=== PATIENT | female | born 1985 | race Two or more races ===

== ENCOUNTER → 2016-09-13 | Outpatient (CLI) | payer OTHER ==
--- NOTE | 2016-09-13 14:41 | MR ---
EXAMINATION TYPE: MR brain/cspine wo DATE OF EXAM: 09/13/2016 2:27 PM COMPARISON: NONE HISTORY: Headaches, Cervicalgia per order. Headaches with neck pain for 3 years per patient. TECHNIQUE: Multiplanar, multisequence imaging of the cervical spine, brain and brainstem are all perf ormed without IV contrast. FINDINGS: BRAIN: Diffusion weighted images demonstrate no evidence of a recent infarct or other diffusion abnormality. There is no worrisome extra-axial fluid collection. The ventricular system and cisternal spaces are normal in size and appearance. The brain volume is age appropriate. There are some scattered foci of T2 hyperintensity seen throughout the white matter bilaterally. I estimate approximately 10 scattere d lesions. Lesions are nonspecific in appearance and distribution. For reference 4 lesions are noted on axial image 20 with largest measuring almost 5 mm on long axis right posterior frontal white matte r and second 4 mm lesion noted left frontal white matter on axial image 17. Midline structures demonstrate normal morphology. The craniocervical junction appears within normal limits. Normal vascular flow voids are present. The visualized sinuses are clear and the globes are i ntact. IMPRESSION: Mild nonspecific white matter changes are present, given patient's history ischemic spain e related to product of migraine headaches needs to BE considered among the possible broad differenti al. C-SPINE: Exam is suboptimal as is degraded by patient motion FINDINGS: Sagittal images of the cervical spine show the craniocervical junction to appear within nor mal limits. The cervical and upper thoracic spinal cord is normal in course caliber and signal. Ther e is some reversal of normal cervical curvature.. The vertebral body intravertebral disk heights are normal. There is mild disc space narrowing C5-C6 level. Tiny posterior disc herniations are seen at C3-C4 through C5-C6 levels on sagittal images minimally effacing anterior thecal sac. No significant spurring is noted The bone marrow signal intensity is within normal limits. Hyperdense lesion right C2 level favors hemangioma on sagittal image 9. Axial images show the C2-C3 level to appear within normal limits. Axial images at C3-C4 level shows central disc protrusion mildly effacing anterior thecal sac on axia l image 35, bilateral neural foramina are patent. Axial images at C4-C5 level show small broad-based right paracentral disc protrusion mildly effacing anterior thecal sac on axial image 29, bilateral neural foramina are patent. Axial images at C5-C6 level show left paracentral/foraminal disc protrusion effacing anterolateral th ecal sac and causing mild left-sided neural foraminal narrowing on axial image 22, right-sided neural foramen is patent. Axial images at C6-C7 and C7-T1 levels are within normal limits. IMPRESSION: Loss of normal cervical curvature with mild multilevel degenerative changes in the upper to mid cervical spine seen as detailed above.
== END | disposition home or self-care (01) ==
LOC: RADMRIMAIN 12:57
PROVIDERS: ATTEND Psychiatry & Neurology Pain Medicine
DX: M47.812 Spondylosis without myelopathy or radiculopathy, cervical region (principal); M43.8X2 Other specified deforming dorsopathies, cervical region; R90.82 White matter disease, unspecified; R51 Headache
CPT/HCPCS: 70551; 72141

== ENCOUNTER → 2021-09-15 | Outpatient (CLI) | payer BC ==
--- NOTE | 2021-09-15 14:00 | XR ---
EXAMINATION TYPE: XR chest 2V DATE OF EXAM: 09/15/2021 COMPARISON: 07/03/2010 HISTORY: 36-year-old female R06.00, dyspnea TECHNIQUE: Frontal and lateral views FINDINGS: The cardiomediastinal silhouette, aorta, and pulmonary vasculature are within normal limits. Lungs an d pleural spaces are clear. Some type of external artifact projects at the medial right apex. IMPRESSION: No acute cardiopulmonary process.
--- NOTE | 2021-09-15 14:59 | CT ---
EXAMINATION TYPE: CT angio chest DATE OF EXAM: 09/15/2021 COMPARISON: CTA chest March 28, 2013. Chest x-ray earlier today HISTORY: elevated d-dimer post covid CT DLP: 353 mGycm. Automated Exposure Control for Dose Reduction was Utilized. CONTRAST: CTA scan of the thorax is performed with IV Contrast, patient injected with 75cc mL of Isovue 370, pu lmonary embolism protocol. MIP Images are created on CT scanner and reviewed. FINDINGS: LUNGS: The lungs remain grossly clear, there is no concerning parenchymal mass or nodule identified. No suspicious focal consolidation or groundglass opacity. There is no pleural effusion or pneumothor ax seen. The tracheobronchial tree is patent. MEDIASTINUM: There is satisfactory enhancement of the pulmonary artery and its branches, there is no CT evidence for pulmonary embolism. Satisfactory enhancement of the aorta without dissection. No gre ater than 3.5 cm ascending aortic aneurysm. Are no greater than 1 cm hilar or mediastinal lymph nodes . No cardiomegaly or pericardial effusion is seen. OTHER: Bilateral subpectoral breast implants are redemonstrated. IMPRESSION: No CT evidence for acute pulmonary embolism. No significant acute or chronic pulmonary pr ocess.
== END | disposition home or self-care (01) ==
LOC: RADCTMAIN 13:16
PROVIDERS: ATTEND Family Medicine
DX: U09.9 Post COVID-19 condition, unspecified (principal); R06.00 Dyspnea, unspecified; R79.89 Other specified abnormal findings of blood chemistry
CPT/HCPCS: 71046; 71275; Q9967

== ENCOUNTER → 2022-01-05 | Outpatient (CLI) | payer BC ==
--- NOTE | 2022-01-05 13:11 | CT ---
EXAMINATION TYPE: CT abdomen pelvis wo con DATE OF EXAM: 01/05/2022 COMPARISON: CT chest 09/15/2021 HISTORY: RLQ pain, pelvic pain CT DLP: 447 mGycm Automated exposure control for dose reduction was used. TECHNIQUE: Helical acquisition of images from the lung bases through the pelvis. FINDINGS: Lack of intravenous contrast could compromise sensitivity of the exam. Bilateral breast pro stheses are present. LUNG BASES: No significant abnormality is appreciated. AORTA: No significant abnormality is appreciated. LIVER/GB: No significant abnormality is appreciated. PANCREAS: No significant abnormality is seen. SPLEEN: No significant abnormality is seen. ADRENALS: No significant abnormality is seen. KIDNEYS: Densities along the papilla of the kidneys may be indicative of medullary nephrocalcinosis. Low dense focus present posterior lateral inferior pole the right kidney is indeterminate, measures 5 to 6 mm in size REPRODUCTIVE ORGANS: Punctate calcification thought present associated with the right ovary. There i s a lack of fat within the pelvis which limits differentiation of the structures.. URINARY BLADDER: No significant abnormality is seen. BOWEL: No significant abnormality is seen. No evident appendicitis. FREE AIR: No Free Air is visible. ASCITES: None visible. PELVIC ADENOPATHY: None visualized. RETROPERITONEAL ADENOPATHY: No Retroperitoneal Adenopathy visible. OSSEOUS STRUCTURES: No significant abnormality is seen. IMPRESSION: NONCONTRAST EXAM MAY LIMIT SENSITIVITY, ADDITIONAL FINDINGS ABOVE FOR FOLLOW-UP INDICATED.
== END | disposition home or self-care (01) ==
LOC: RADCTMAIN 12:28
PROVIDERS: ATTEND Family Medicine
DX: R10.31 Right lower quadrant pain (principal); R10.2 Pelvic and perineal pain
CPT/HCPCS: 74176

== ENCOUNTER 2022-09-16 17:02 | Emergency (ER) | payer BC ==
--- NOTE | 2022-09-16 18:44 | XR ---
EXAMINATION TYPE: XR chest 2V DATE OF EXAM: 09/16/2022 6:08 PM COMPARISON: Chest radiographs from 09/15/2021 TECHNIQUE: XR chest 2V Frontal and lateral views of the chest. CLINICAL INDICATION:Female, 37 years old with history of Chest Pain; FINDINGS: Lungs/Pleura: There is no evidence of pleural effusion, focal consolidation, or pneumothorax. Pulmonary vascularity: Unremarkable. Heart/mediastinum: Cardiomediastinal silhouette is unremarkable. Musculoskeletal: No acute osseous pathology. IMPRESSION: No acute cardiopulmonary disease/process.
[2022-09-16 19:02] LABS: Basophils # (A) 0.1 k/uL (0-0.2); Basophils % (A) 1 %; Eosinophils # (A) 0.1 k/uL (0-0.7); Eosinophils % (A) 1 %; HCT 39.6 % (34.0-46.0); HGB 13.6 gm/dL (11.4-16.0); Lymphocytes # (A) 2.2 k/uL (1.0-4.8); Lymphocytes % (A) 30 %; MCH 29.6 pg (25.0-35.0); MCHC 34.3 g/dL (31.0-37.0); MCV 86.2 fL (80.0-100.0); Mean Platelet Volume 7.6; Monocytes # (A) 0.3 k/uL (0-1.0); Monocytes % (A) 5 %; Neutrophils # (A) 4.6 k/uL (1.3-7.7); Neutrophils % (A) 62 %; Platelet Count 246 k/uL (150-450); RDW 12.6 % (11.5-15.5); WBC 7.5 k/uL (3.8-10.6)
[2022-09-16 19:04] LABS: ALT 36 U/L (4-34); AST 30 U/L (14-36); African American GFR (CKD) >90 (>60 ml/min/1.73 sqM); Alkaline Phosphatase 60 U/L (38-126); Anion Gap 7 mmol/L; Blood Urea Nitrogen 12 mg/dL (7-17); Calcium 9.8 mg/dL (8.4-10.2); Carbon Dioxide 27 mmol/L (22-30); Chloride 107 mmol/L (98-107); Glucose 95 mg/dL (74-99); Magnesium 2.1 mg/dL (1.6-2.3); Non-African American GFR(CKD) >90 (>60 ml/min/1.73 sqM); Potassium 4.4 mmol/L (3.5-5.1); Sodium 141 mmol/L (137-145); Total Bilirubin 1.3 mg/dL (0.2-1.3)
[2022-09-16 19:05] LABS: INR 0.9 (<1.2); Partial Thromboplastin Time 24.7 sec (22.0-30.0); Prothrombin Time 10.1 sec (9.0-12.0)
--- NOTE | 2022-09-16 20:04 | ED ---
Chest Pain HPI - General Chief Complaint: Chest Pain Stated Complaint: Chest Pain,SOB Time Seen by Provider: 09/16/22 18:07 Source: patient Mode of arrival: ambulatory Limitations: no limitations - History of Present Illness Initial Comments: This patient is a 37-year-old woman who presents to have evaluation of chest pain that had started around 10 AM around the time she was having breakfast. Patient was also concerned because last night around 6 PM she noticed that she was having some left arm pressure. This had also developed at rest. The anette ent states that the symptoms do not have any exertional component. She has not noted worsening or relieving factors. There were no associated anginal symptoms. MD Complaint: chest pain -: hour(s) Onset: during rest Pain Location: substernal Pain Radiation: none Severity: moderate Quality: heaviness Consistency: constant Improves With: nothing Worsens With: nothing Treatments Prior to Arrival: none - Related Data Home Medications Medication Instructions Recorded Confirmed Albuterol Sulfate [Albuterol 2 puff INHALATION RT-QID PRN 09/16/22 09/16/22 Sulfate Hfa] Allergies Allergy/AdvReac Type Severity Reaction Status Date / Time No Known Allergies Allergy Verified 09/16/22 19:21 Review of Systems ROS Statement: Those systems with pertinent positive or pertinent negative responses have been documented in the HPI. ROS Other: All systems not noted in ROS Statement are negative. Constitutional: Denies: fever, chills, weakness Respiratory: Denies: cough, dyspnea Cardiovascular: Reports: as per HPI, chest pain. Denies: palpitations, orthopnea, edema, syncope Gastrointestinal: Denies: abdominal pain, nausea, vomiting Genitourinary: Denies: dysuria, hematuria Musculoskeletal: Denies: back pain Skin: Denies: rash Neurological: Denies: headache, weakness EKG Findings - EKG Results: EKG: interpreted by ERMD, sinus rhythm (Rate 85 bpm), normal axis, normal QRS, normal ST/T Past Medical History Past Medical History: No Reported History History of Any Multi-Drug Resistant Organisms: None Reported Additional Past Surgical History / Comment(s): breast implants,. tumor removed left breast. Past Psychological History: No Psychological Hx Reported Smoking Status: Never smoker Past Alcohol Use History: None Reported Past Drug Use History: None Reported General Exam Limitations: no limitations General appearance: alert, in no apparent distress Head exam: Present: atraumatic, normocephalic Eye exam: Present: normal appearance. Absent: scleral icterus, conjunctival injection Neck exam: Present: normal inspection Respiratory exam: Present: normal lung sounds bilaterally. Absent: respiratory distress, wheezes, rales, rhonchi, stridor, chest wall tenderness, accessory muscle use Cardiovascular Exam: Present: regular rate, normal rhythm, normal heart sounds. Absent: systolic murmur, diastolic murmur, rubs, gallop GI/Abdominal exam: Present: soft. Absent: distended, tenderness, guarding, rebound, rigid, mass Extremities exam: Present: normal inspection, normal capillary refill. Absent: pedal edema, calf tenderness Back exam: Present: normal inspection. Absent: CVA tenderness (R), CVA tenderness (L) Neurological exam: Present: alert Skin exam: Present: warm, dry, intact, normal color. Absent: rash Course Vital Signs 09/16/22 09/16/22 09/16/22 17:15 18:30 18:32 Temperature 97.8 F Pulse Rate 85 80 Pulse Rate [ 82 [employer] ] Respiratory 20 18 Rate Blood Pressure 128/86 121/74 O2 Sat by Pulse 96 97 Oximetry 09/16/22 09/16/22 20:00 20:21 Temperature 98.3 F Pulse Rate 83 72 Pulse Rate [ [employer] ] Respiratory 18 18 Rate Blood Pressure 120/72 O2 Sat by Pulse 99 99 Oximetry Chest Pain MDM - MDM I interpreted the chest x-ray as being negative for infiltrate, cardiomegaly, mediastinal enlargement Patient's 37-year-old woman presenting to have evaluation for chest pain. The chest pain is atypical in nature. She does not have any risk factors for cardiac disease. The workup here is negative. Discussed appropriate further care and follow-up as well as return parameters. Was pt. sent in by a medical professional or institution? @ -No Did you speak to anyone other than the patient for history? @ -[No Did you review nursing and triage notes? @ -[agree Were old charts reviewed? @ -No Differential Diagnosis? @ -[Differential Chest Pain: Stable Angina, Unstable Angina, STEMI, NSTEMI Aortic Dissection, Pneumothorax, Musculoskeletal, Esophageal Spasm GERD, Cholecystitis, Pancreatitis, , this is not meant to be an all-inclusive list. EKG interpreted by me (3pts min.)? @ -[See chart X-rays interpreted by me (1pt min.)? @ -[See chart CT interpreted by me (1pt min.)? @ -[none] U/S interpreted by me (1pt. min.)? @ -[none] What testing was considered but not performed? (CT, X-rays, U/S, labs)? Why? @ [None What meds were considered but not given? Why? @ -[none] Did you discuss the management of the patient with other professionals? @ -[No Did you reconcile home meds? @ -[none] Was smoking cessation discussed for >3mins.? @ -[none] Was critical care preformed (if so, how long)? @ -[none] Were there social determinants of health that impacted care today? How? (Homelessness, low income, unemployed, alcoholism, drug addiction, transportation, low edu. Level, literacy, decrease access to med. care, [facility], rehab)? @ -[None Was there de-escalation of care discussed even if they declined? (Discuss DNR or withdrawal of care, Hospice)? @ -[No What co-morbidities impacted this encounter? (DM, HTN, Smoking, COPD, CAD, Cancer, CVA, Hep., AIDS, mental health diagnosis, sleep apnea, morbid obesity)? @ -[No Was patient admitted / discharged? @ -[Discharge Undiagnosed new problem with uncertain prognosis? @ -[none] Drug Therapy requiring intensive monitoring for toxicity (Heparin, Nitro, Insulin, Cardizem)? @ -[none] Were any procedures done? @ -[none] Diagnosis/symptom? @ -Chest pain Acute, or Chronic, or Acute on Chronic? @ -[Acute Uncomplicated (without systemic symptoms) or Complicated (systemic symptoms)? @ -[Uncomplicated Side effects of treatment? @ -[none] Exacerbation, Progression, or Severe Exacerbation] @ -[no] Poses a threat to life or bodily function? @ -[no] Disposition Clinical Impression: Chest pain Disposition: HOME SELF-CARE Condition: Good Instructions (If sedation given, give patient instructions): Chest Pain (ED) Is patient prescribed a controlled substance at d/c from ED?: No Referrals: Oneil Lee MD [Primary Care Provider] - 1-2 days
[2022-09-16 20:20] VITALS: RESP 18
[2022-09-16 20:23] VITALS: BP 120/72; PULSE 72; TEMP 98.3
== END 2022-09-16 20:23 | disposition home or self-care (01) ==
LOC: EC 17:02
DX: R07.89 Other chest pain (principal)
CPT/HCPCS: 36415; 71046; 80053; 83735; 84484; 85025; 85610; 85730; 93005; 99285

== ENCOUNTER 2023-01-12 17:20 | Emergency (ER) | payer BC ==
[2023-01-12 17:31] VITALS: PULSE 90; RESP 16; TEMP 97.5
--- NOTE | 2023-01-12 17:42 | ED ---
Abdominal Pain HPI - General Chief Complaint: Abdominal Pain Stated Complaint: Abd Pain Time Seen by Provider: 01/12/23 17:38 Source: patient, RN notes reviewed, old records reviewed Mode of arrival: ambulatory Limitations: no limitations - History of Present Illness Initial Comments: This is a 29-year-old female DF for evaluation presents today for evaluation of abdominal pain. Patient comes over to the emergency department from computed tomography scan to rule out ovarian torsion. MD Complaint: abdominal pain -: hour(s) Location: diffuse, epigastric, suprapubic Radiation: epigastric, suprapubic Migration to: no migration Severity: moderate Severity scale (1-10): 4 Consistency: intermittent Improves With: nothing Worsens With: nothing Context: other (No prior history of abdominal surgery) Treatments Prior to Arrival: other (0) - Related Data Home Medications Medication Instructions Recorded Confirmed Albuterol Sulfate [Albuterol 2 puff INHALATION RT-QID PRN 09/16/22 01/12/23 Sulfate Hfa] Allergies Allergy/AdvReac Type Severity Reaction Status Date / Time No Known Allergies Allergy Verified 01/12/23 18:41 Review of Systems ROS Statement: Those systems with pertinent positive or pertinent negative responses have been documented in the HPI. ROS Other: All systems not noted in ROS Statement are negative. Past Medical History Past Medical History: Asthma History of Any Multi-Drug Resistant Organisms: None Reported Additional Past Surgical History / Comment(s): breast implants,. tumor removed left breast. Past Psychological History: No Psychological Hx Reported Smoking Status: Never smoker Past Alcohol Use History: None Reported Past Drug Use History: None Reported General Exam Limitations: no limitations General appearance: alert, in no apparent distress Head exam: Present: atraumatic, normocephalic, normal inspection Eye exam: Present: normal appearance, PERRL, EOMI. Absent: scleral icterus, conjunctival injection, periorbital swelling ENT exam: Present: normal exam, mucous membranes moist Neck exam: Present: normal inspection. Absent: tenderness, meningismus, lymphadenopathy Respiratory exam: Present: normal lung sounds bilaterally. Absent: respiratory distress, wheezes, rales, rhonchi, stridor Cardiovascular Exam: Present: regular rate, normal rhythm, normal heart sounds. Absent: systolic murmur, diastolic murmur, rubs, gallop, clicks GI/Abdominal exam: Present: soft, normal bowel sounds. Absent: distended, tenderness, guarding, rebound, rigid Extremities exam: Present: normal inspection, full ROM, normal capillary refill. Absent: tenderness, pedal edema, joint swelling, calf tenderness Back exam: Present: normal inspection Neurological exam: Present: alert, oriented X3, CN II-XII intact Psychiatric exam: Present: normal affect, normal mood Skin exam: Present: warm, dry, intact, normal color. Absent: rash Course Vital Signs 01/12/23 01/12/23 17:29 20:30 Temperature 97.5 F L Pulse Rate 90 90 Respiratory 16 16 Rate Blood Pressure 137/83 134/60 O2 Sat by Pulse 100 100 Oximetry - Reevaluation(s) Reevaluation #1: 01/12/23 18:21 Medical record is reviewed Reevaluation #2: Patient symptoms improved here in the ER Reevaluation #3: Patient informed results questions answered Reevaluation #4: 01/12/23 18:21 Was pt. sent in by a medical professional or institution? @ -no Did you speak to anyone other than the patient for history? @ -no Did you review nursing and triage notes? @ -agree Were old charts reviewed? @ -Outpatient lab values and computed tomography scan from earlier in the day are reviewed and interpreted Differential Diagnosis? @ -prior EKG interpreted by me (3pts min.)? @ -yes X-rays interpreted by me (1pt min.)? @ -yes CT interpreted by me (1pt min.)? @ -no U/S interpreted by me (1pt. min.)? @ -no What testing was considered but not performed? (CT, X-rays, U/S, labs)? Why? @ -no What meds were considered but not given? Why? @ -no Did you discuss the management of the patient with other professionals? @ -no Did you reconcile home meds? @ -no Was smoking cessation discussed for >3mins.? @ -no Was critical care preformed (if so, how long)? @ -no Were there social determinants of health that impacted care today? How? (Homelessness, low income, unemployed, alcoholism, drug addiction, transportation, low edu. Level, literacy, decrease access to med. care, [facility], rehab)? @ -no Was there de-escalation of care discussed even if they declined? (Discuss DNR or withdrawal of care, Hospice)? @ -no What co-morbidities impacted this encounter? (DM, HTN, Smoking, COPD, CAD, Cancer, CVA, Hep., AIDS, mental health diagnosis, sleep apnea, morbid obesity)? @ -no Was patient admitted / discharged? @ -dc Undiagnosed new problem with uncertain prognosis? @ -no Drug Therapy requiring intensive monitoring for toxicity (Heparin, Nitro, Insulin, Cardizem)? @ -no Were any procedures done? @ -no Diagnosis/symptom? @ -hemorrhagic cyst Acute, or Chronic, or Acute on Chronic? @ -acute Uncomplicated (without systemic symptoms) or Complicated (systemic symptoms)? @ -no Side effects of treatment? @ -no Exacerbation, Progression, or Severe Exacerbation] @ -no Poses a threat to life or bodily function? @ -no Reevaluation #5: 01/12/23 18:21 Differential Abdominal Pain Women: Appendicitis, Cholecystitis, diverticulosis, ischemic bowel, pancreatitis, hepatitis, UTI, gastroenteritis, AAA, incarcerated hernia, bowel obstruction, constipation, inflammatory bowel, hepatitis, peptic ulcer disease, splenic infarction, perforated viscus, vulvitis, ovarian torsion, PID, kidney stone, placenta abruption, this is not meant to be an all-inclusive list Medical Decision Making - Medical Decision Making 29 female Amanda with significant and severe abdominal pain persistent for a week hemorrhagic cyst, outpatient evaluation including computed tomography scan labwork is interpreted ultrasound does show hemorrhagic cyst patient symptoms are improved patient can be discharged home - Lab Data Lab Results 01/12/23 01/12/23 Range/Units 17:45 17:45 Urine Color Light Yellow Urine Appearance Clear (Clear) Urine pH 6.0 (5.0-8.0) Ur Specific [place] 1.010 (1.001-1.035) Urine Protein Negative (Negative) Urine Glucose (UA) Negative (Negative) Urine Ketones Trace H (Negative) Urine Blood Negative (Negative) Urine Nitrite Negative (Negative) Urine Bilirubin Negative (Negative) Urine Urobilinogen <2.0 (<2.0) mg/dL Ur Leukocyte Esterase Negative (Negative) Urine HCG, Qual Not Detected (Not Detectd) - Radiology Data Radiology results: report reviewed (Ultrasound pelvis positive for hemorrhagic cyst), image reviewed Disposition Clinical Impression: Hemorrhagic cyst of ovary, Abdominal pain Disposition: HOME SELF-CARE Condition: Good Instructions (If sedation given, give patient instructions): Ovarian Cyst (ED), Ruptured Ovarian Cyst (ED) Is patient prescribed a controlled substance at d/c from ED?: No Referrals: Bryanna Reddy MD [Family Provider] - 1-2 days Time of Disposition: 20:05
[2023-01-12 18:11] LABS: Appearance,Urine Clear (Clear); Bilirubin,Urine Negative (Negative); Blood,Urine Negative (Negative); Color,Urine Light Yellow; Glucose,Urine (UA) Negative (Negative); Ketones,Urine Trace (Negative); Leukocyte Esterase,Urine Negative (Negative); Nitrite,Urine Negative (Negative); Protein,Urine Negative (Negative); Urobilinogen,Urine <2.0 mg/dL (<2.0)
--- NOTE | 2023-01-12 19:09 | US ---
EXAMINATION TYPE: US pelvis complete transvag DATE OF EXAM: 01/12/2023 COMPARISON: CT: Today CLINICAL INDICATION: Female, 37 years old with history of torsion; Abnormal CT TECHNIQUE: Transvaginal (TV). Transabdominal sonographic images of the pelvis were acquired. Trans vaginal sonographic images were medically necessary to better assess the following anatomy: Ovaries Date of LMP: Pt states around 2 1/2 weeks ago EXAM MEASUREMENTS: Uterus: 9.6 x 5.2 x 4.1 cm Endometrial Stripe: 1.5 cm Right Ovary: 2.2 x 1.9 x 1.4 cm Left Ovary: 3.4 x 3.1 x 2.7 cm 1. Uterus: Anteverted wnl 2. Endometrium: Possibly thickened? Heterogeneous appearance 3. Right Ovary: wnl, appropriate arterial and spectral venous waveforms. 4. Left Ovary: Complex appearing. There appears to be a "ring of fire" sign around a complex structu re. Measuring 1.7 x 1.4 cm low internal echoes. Appropriate arterial and spectral venous waveforms. Spectral, color and waveform doppler imaging shows good arterial and venous flow within the ovaries ; there is no evidence for ovarian torsion. 5. Bilateral Adnexa: Fluid seen in the right adnexa 6. Posterior cul-de-sac: fluid seen IMPRESSION: 1. Suspected left ovarian hemorrhagic follicle measuring up to 1.7 x 1.4 cm. Follow-up ultrasound in 8-12 weeks recommended to ensure resolution. 2. Appropriate arterial and venous waveforms to the left ovary. 3. Endometrium appears within normal limits for thickness. There is some heterogeneity to the endome trium which could relate to menstruation changes.
[2023-01-12] MEDS ORDERED: traMADol 50 MG STARTER PACK 3 TAB BTL PO STA (20:02)
[2023-01-12] MEDS ORDERED: ONDANSETRON 4 MG ODT STARTER PACK 2 TAB BTL PO STA (20:02)
[2023-01-12] MEDS ORDERED: traMADol 50 MG TAB PO STA (20:02)
[2023-01-12 20:32] VITALS: BP 134/60
== END 2023-01-12 20:31 | disposition home or self-care (01) ==
LOC: EC 17:20
DX: N83.202 Unspecified ovarian cyst, left side (principal); J45.909 Unspecified asthma, uncomplicated; Z79.899 Other long term (current) drug therapy
CPT/HCPCS: 81003; 81025; 93975; 76856; 76830; 99284; S0119

== ENCOUNTER → 2023-01-12 | Outpatient (CLI) | payer BC ==
--- NOTE | 2023-01-12 17:04 | CT ---
EXAMINATION TYPE: CT abdomen pelvis wo con CT DLP: 471 mGycm, Automated exposure control for dose reduction was used. DATE OF EXAM: 01/12/2023 4:48 PM COMPARISON: CT abdomen pelvis most recent from 01/05/2022. CLINICAL INDICATION:Female, 37 years old with history of R10.30 LOWER ABDOMINAL PAIN, UNSPECIFIED; LO W BACK AND BELLY PAINS THAT SHOOT DOWN THE LEGS. ORDER STATES ATTN TO [facility]. TECHNIQUE: Axial CT of the abdomen and pelvis. Sagittal and coronal reformats were created on a [employer] workstation. Contrast used: None Oral contrast used: without Oral Contrast FINDINGS: LOWER CHEST: Unremarkable ABDOMEN LIVER: Unremarkable GALLBLADDER AND BILE DUCTS: Unremarkable. PANCREAS: Unremarkable. SPLEEN: Unremarkable. ADRENAL GLANDS: Unremarkable. KIDNEYS AND URETERS: No evidence of hydronephrosis or renal calculus. The ureters are unremarkable. PELVIS BLADDER: Unremarkable REPRODUCTIVE: There is asymmetric increased blood ovary. Left ovary measures 3.9 x 2.0 x 3.2. Right o vary measures 2.1 x 2.4 x 1.5 cm ABDOMEN & PELVIS STOMACH AND BOWEL: No evidence of bowel obstruction. PERITONEUM/RETROPERITONEUM: Trace fluid is seen within the pelvis, no evidence of pneumoperitoneum. VASCULATURE: No evidence of aortic aneurysm. MUSCULOSKELETAL: No acute osseous abnormalities, mild scoliosis changes of the spine. Visualized neur al foramen and spinal canal appear patent given CT technique. LYMPH NODES: No gross evidence for lymphadenopathy. SOFT TISSUE/ABDOMINAL WALL: Unremarkable IMPRESSION: 1. No evidence of acute fracture. The spinal canal and neural foramen appear patent. Consider furthe r evaluation with MRI. 2. Asymmetrically increased left ovary size, further evaluation with pelvic ultrasound with Doppler imaging may be of benefit. Findings could represent underlying follicular changes and/or edema in the appropriate clinical setting of ovarian torsion.
[2023-01-12 21:18] LABS: C Reactive Protein <0.30 mg/dL (0.00-0.80)
[2023-01-12 21:19] LABS: ALT 34 U/L (8-44); AST 23 U/L (13-35); African American GFR (CKD) 128.7 (60.0-200.0); Albumin 5.1 g/dL (3.8-4.9); Alkaline Phosphatase 53 U/L (41-126); BUN/Creat Ratio 25.07 Ratio (12.00-20.00); Calcium 10.1 mg/dL (8.7-10.3); Carbon Dioxide 23.2 mmol/L (20.0-27.5); Chloride 106 mmol/L (96-109); Globulin 2.7 g/dL (1.6-3.3); Glucose 83 mg/dL (70-110); Non-African American GFR(CKD) 111.1 (60.0-200.0); Potassium 4.3 mmol/L (3.5-5.5); Sodium 142 mmol/L (135-145); Total Protein 7.8 g/dL (6.2-8.2)
[2023-01-12 21:39] LABS: Basophils # (A) 0.05 X 10*3/uL (0.00-0.10); Basophils % (A) 0.6 %; Eosinophils # (A) 0.16 X 10*3/uL (0.04-0.35); HCT 40.5 % (37.2-46.3); HGB 13.1 g/dL (12.0-15.0); Immature Grans, Automated 0.3 %; Lymphocytes # (A) 2.56 X 10*3/uL (0.90-5.00); Lymphocytes % (A) 32.2 %; MCH 28.3 pg (27.0-32.0); MCHC 32.3 g/dL (32.0-37.0); MCV 87.5 fL (80.0-97.0); Mean Platelet Volume 10.9 fL (9.5-12.2); Monocytes # (A) 0.62 X 10*3/uL (0.20-1.00); Monocytes % (A) 7.8 %; NRBC Per 100 WBC 0 /100 WBCS (0.0-0.0); Neutrophils # (A) 4.55 X 10*3/uL (1.80-7.70); Neutrophils % (A) 57.1 %; Platelet Count 264 X 10*3/uL (140-440); RBC 4.63 X 10*6/uL (4.10-5.20); RDW 12.6 % (11.5-14.5); WBC 7.96 X 10*3/uL (4.50-10.00)
== END | disposition home or self-care (01) ==
LOC: LABWHC1 15:20
PROVIDERS: ATTEND Family Medicine
DX: R10.30 Lower abdominal pain, unspecified (principal)
CPT/HCPCS: 36415; 74176; 80053; 85025; 86140

== ENCOUNTER → 2023-04-14 | Outpatient (CLI) | payer BC ==
[2023-04-14 16:58] LABS: Basophils # (A) 0.04 X 10*3/uL (0.00-0.10); Basophils % (A) 0.9 %; Eosinophils % (A) 4.6 %; HCT 38.7 % (37.2-46.3); HGB 12.2 d/dL (12.0-15.0); Lymphocytes # (A) 1.68 X 10*3/uL (0.90-5.00); Lymphocytes % (A) 38.5 %; MCH 28.2 pg (27.0-32.0); MCHC 31.5 d/dL (32.0-37.0); MCV 89.6 FL (80.0-97.0); Monocytes # (A) 0.36 X 10*3/uL (0.20-1.00); Monocytes % (A) 8.3 %; NRBC Per 100 WBC 0 X 10*3/uL (0.00-0.01); Neutrophils # (A) 2.07 X 10*3/uL (1.80-7.70); Neutrophils % (A) 47.5 %; Platelet Count 221 X 10*3/uL (140-440); RBC 4.32 X 10*6/uL (4.10-5.20); RDW 12.6 % (11.5-14.5); WBC 4.36 X 10*3/uL (4.50-10.00)
== END | disposition home or self-care (01) ==
LOC: LABPAT 09:45
PROVIDERS: ATTEND Obstetrics & Gynecology Obstetrics
DX: Z01.812 Encounter for preprocedural laboratory examination (principal); N84.0 Polyp of corpus uteri; N92.0 Excessive and frequent menstruation with regular cycle
CPT/HCPCS: 85025

== ENCOUNTER 2023-04-22 10:31 | Day surgery (SDC) | payer BC ==
[2023-04-14 12:26] VITALS: BMI 20.5
[~2023-04-22 10:31] MED LIST: DEXAMETHASONE SOD PHOSPHATE 4 MG/ML 1 ML VIAL IV ONE; HYDROmorphone 0.5 MG/0.5 ML SYRINGE IVP PRN; LACTATED RINGERS 1,000 ML IV SCH; LIDOCAINE 1% (10MG/ML) FOR IV START INTRADERMA PRN; ONDANSETRON 4 MG/2 ML VIAL IVP ONE; Pre Op ABX Message 1 EACH MISC MISCELLANE ONE; SCOPOLAMINE 1 MG/72 HR PATCH TRANSDERM ONE; droPERidol 5 MG/2 ML VIAL IVP ONE
[2023-04-22 10:52] VITALS: RESP 16
[2023-04-22] MEDS ORDERED: LIDOCAINE 2% INJ 20 MG/ML (2 ML VIAL) ONE (11:42)
[2023-04-22] MEDS ORDERED: MIDAZOLAM 2 MG/2 ML VIAL ONE (11:42)
[2023-04-22] MEDS ORDERED: KETOROLAC 15 MG/ML 1 ML VIAL ONE (11:42)
[2023-04-22] MEDS ORDERED: fentaNYL (PF) 50 MCG/ML 2 ML AMP ONE (11:42)
[2023-04-22] MEDS ORDERED: PROPOFOL 10 MG/ML 20 ML VIAL IV ONE (11:42)
[2023-04-22] MEDS ORDERED: SILVER NITRATE APPLICATOR 1 EACH STICK..EA. TOPICAL ONE (12:07)
[2023-04-22] MEDS ORDERED: LACTATED RINGERS 1,000 ML IV ONE (12:07)
--- NOTE | 2023-04-22 12:22 | P.OP ---
Date of Procedure: 04/22/23 Preoperative Diagnosis: Endometrial polyp, heavy menstrual bleeding Postoperative Diagnosis: Same Procedure(s) Performed: Hysteroscopy, dilation and curettage Anesthesia: MAC Surgeon: Alejandra Dawn Estimated Blood Loss (ml): 3 IV fluids (ml): 700 Urine output (ml): 100 Pathology: other (Endometrial curettings, polyp) Condition: stable Disposition: PACU Indications for Procedure: Heavy menstrual bleeding with ultrasound confirmation of endometrial polyp Operative Findings: Proliferative endometrium with benign appearing endometrial polyp Description of Procedure: Patient was taken back to the operating suite where general anesthesia was obtained without difficulty by the anesthesia department. She was prepped and draped in normal sterile fashion in the dorsal lithotomy position. A [place] catheter was used to drain the bladder clear yellow urine. The weighted speculum was placed the posterior vaginal vault intralipids the cervix was visualized and grasped with a single-tooth tenaculum. Endocervical canal sincerely dilated. Hysteroscope was placed through the cervix and toward the usual cavity. An intact cavity was appreciated with a large endometrial polyp. Pictures were taken and the hysteroscope was removed. A sharp curettage was performed and endometrial polyp was removed without difficulty. The curette was continued until gritty texture was noted in all 4 quadrants of the endometrial cavity. The specimens and sent to pathology for analysis. The single-tooth tenaculum was taken off the anterior lip of the cervix. A slight amount of ble eding was noted therefore silver nitrate was used to obtain hemostasis. All instrument removed from the patient's vaginal vault. All counts were correct 2. Patient tolerated procedure well and was taken the recovery room awake in stable condition.
[2023-04-22 12:23] VITALS: TEMP 98
[2023-04-22 13:47] VITALS: BP 115/74; PULSE 60
== END 2023-04-22 13:44 | disposition home or self-care (01) ==
LOC: OR 10:31
PROVIDERS: ATTEND Obstetrics & Gynecology Obstetrics
DX: N85.8 Other specified noninflammatory disorders of uterus (principal); J45.909 Unspecified asthma, uncomplicated; Z79.51 Long term (current) use of inhaled steroids
CPT/HCPCS: 58558; 81025; 88305; J2250; J1100; J2405; J3010; J1885; J2704; J2001

== ENCOUNTER → 2024-10-09 | Outpatient (CLI) | payer BC ==
--- NOTE | 2024-10-09 10:43 | MM ---
Reason for Exam: Screening (asymptomatic). Baseline mammogram. Patient History: Menarche at age 10. First Full-Term at age 20. Patient has history of breast feeding. 01/17/2015, Benign Excisional Biopsy on the right side. 07/17/2015, Bilateral Implants. Last menstrual period: 09/27/2024 Risk Values: Lynn 5 year model risk: 0.9%. NCI Lifetime model risk: 12.0%. Prior Study Comparison: Patient's first Mammogram. Tissue Density: The breasts are extremely dense, which lowers the sensitivity of mammography. Findings: Analyzed By CAD. Bilateral subpectoral breast implants are present. There is no suspicious group of microcalcifications or suspicious mass in either breast. Overall Assessment: Benign, BI-RAD 2 Management: Screening Mammogram of both breasts in 1 year. Some advise annual bilateral breast ultrasound surveillance in patients with background dense tissue. Patient should continue monthly self-breast exams. A clinical breast exam by your physician is recommended on an annual basis. This exam should not preclude additional follow-up of suspicious palpable abnormalities. Note on Lynn scores and lifetime risk: 1. A Lynn score greater than 3% is considered moderate risk. If this is the case, consider specialist referral to assess eligibility for a risk reducing agent. 2. If overall lifetime risk for the development of breast cancer is 20% or higher, the patient may qualify for future screening with alternating mammogram and breast MRI. [facility], , 10/09/2024 10:39 AM. Electronically signed and approved by: Mike Boo M.D.
== END | disposition home or self-care (01) ==
LOC: RADMAMWWP 09:32
PROVIDERS: ATTEND Obstetrics & Gynecology Obstetrics
DX: Z12.31 Encounter for screening mammogram for malignant neoplasm of breast (principal); R92.343 Mammographic extreme density, bilateral breasts; Z98.82 Breast implant status
CPT/HCPCS: 77063; 77067